=== PATIENT | male | born 1990 | race Caucasian/White ===

== ENCOUNTER 2021-07-07 13:58 | Emergency (ER) | payer OTHER, SELFPAY ==
--- NOTE | 2021-07-07 14:04 | ED.GENADULT ---
HPI - General Adult General Chief complaint: Unspecified Stated complaint: Medication Refill Time Seen by Provider: 07/07/21 14:04 Source: patient and RN notes reviewed History of Present Illness HPI narrative: Patient is a 30-year-old male who presents the urgent care with complaints of needing medication refills. States that he is HIV positive and his physician who orders his medications is in [place]. Patient states that he recently had an insurance change to [place] [employer] and they will not refill the medications. Patient denies of any complications. No other acute complaints. No acute distress noted. Patient aware of the plan of care. Some parts of this dictation were generated by voice recognition software and may contain typographical and/or grammatical inaccuracies. Related Data Home Medications Medication Instructions Recorded Confirmed dolutegravir [Tivicay] 50 mg PO DAILY 07/07/21 07/07/21 emtricitabine-tenofovir (TDF) 1 tablet PO DAILY 07/07/21 07/07/21 Allergies Allergy/AdvReac Type Severity Reaction Status Date / Time No Known Allergies Allergy Verified 07/07/21 14:45 Review of Systems Review of Systems: CONSTITUTIONAL: Denies fever, chills, or sweats. EYES: Denies visual changes, redness, or discharge. ENT: Denies rhinorrhea, congestion, sore throat, or otalgia. CARDIOVASCULAR: Denies chest pain, palpitations, or edema. RESPIRATORY: Denies cough or dyspnea. GASTROINTESTINAL: Denies abdominal pain, nausea, vomiting, or diarrhea. GENITOURINARY: Denies dysuria or hematuria. SKIN: Denies rash or itching. MUSCULOSKELETAL: Denies back pain, joint pain, or myalgia. NEUROLOGIC: Denies headache, numbness, or weakness. All other systems reviewed are negative, except as documented in HPI. PMFSH Comments At the time of my signature, I reviewed and agree with the nursing past medical, surgical, social, and family history. There is no relevant family history pertinent to the patient complaint. Exam Narrative: GENERAL: This is a well-nourished, well-developed patient, in no apparent distress. HEAD: normocephalic, atraumatic. EYES: PERRL. Sclera clear/white. Vision is grossly intact. EARS: External ears normal NOSE: External nose normal with no obvious nasal discharge, nares without redness, no rhinorrhea. THROAT: Mucous membranes moist NECK: Neck supple CARDIOVASCULAR: Regular rate and rhythm without murmurs, gallops, or rubs. RESPIRATORY: Clear to auscultation. Breath sounds equal bilaterally. No wheezes, rales, or rhonchi. SKIN: warm, intact with no suspicious lesions or rash, good texture and turgor. NEURO: awake, alert, and oriented to person, place and time. There were no obvious focal neurologic abnormalities. EXTREMITIES: No clubbing, cyanosis, or edema. Course Vital Signs Vital signs: Vital Signs Temperature 98.8 F 07/07/21 14:10 Pulse Rate 92 07/07/21 14:10 Respiratory Rate 18 07/07/21 14:10 Blood Pressure 150/83 H 07/07/21 14:10 Pulse Oximetry 99 07/07/21 14:10 Temperature 98.8 F 07/07/21 14:10 Pulse Rate 92 07/07/21 14:10 Respiratory Rate 18 07/07/21 14:10 Blood Pressure 150/83 H 07/07/21 14:10 Pulse Oximetry 99 07/07/21 14:10 Reviewed-patient is informed that they may have pre-hypertension or hypertension based on a blood pressure reading in the department. I recommend the patient call the primary care provider listed on their discharge instructions or a physician of their choice this week to arrange follow-up for further evaluation of possible pre-hypertension or hypertension. Medical Decision Making MDM Narrative Medical decision making narrative: Explained to the patient that our facility cannot routinely refill chronic medications. We will refill 30-day supply of both HIV medications. Stressed to the patient he needs to follow-up with a primary care physician. Follow-up with the referred PCP today or tomorrow for future appointment time. Different
[2021-07-07 14:10] VITALS: BP 150/83; PULSE 92; RESP 18; TEMP 37.1; O2SAT 99
== END 2021-07-07 14:15 | disposition home or self-care (01) ==
PROVIDERS: Emergency Provider Nurse Practitioner Family
DX: Z76.0 Encounter for issue of repeat prescription (principal); Z21 Asymptomatic human immunodeficiency virus [HIV] infection status
CPT/HCPCS: 99211; G0463

== ENCOUNTER 2021-08-09 16:15 | Emergency (ER) | payer OTHER, SELFPAY ==
[2021-08-09 16:23] VITALS: BP 146/72; PULSE 84; RESP 16; TEMP 36.3; O2SAT 99
--- NOTE | 2021-08-09 16:33 | ED.GENADULT ---
HPI - General Adult General Chief complaint: Unspecified Stated complaint: RX Refills Source: patient Mode of arrival: ambulatory Limitations: no limitations History of Present Illness HPI narrative: 30-year-old well-appearing male presented requesting refill of HIV medications. He states his insurance is going into effect in 5 days, however he only has 1 pill left. He states he will be moving back to [place] and will be reestablishing with his primary care provider. He was here last month for the same. Related Data Home Medications Medication Instructions Recorded Confirmed dolutegravir [Tivicay] 50 mg PO DAILY 07/07/21 07/07/21 emtricitabine-tenofovir (TDF) 1 tablet PO DAILY 07/07/21 07/07/21 Allergies Allergy/AdvReac Type Severity Reaction Status Date / Time No Known Allergies Allergy Verified 07/07/21 14:45 Review of Systems Review of Systems: CONSTITUTIONAL: Denies body aches, fever, chills, or sweats. EYES: Denies visual changes, redness, or discharge. ENT: Denies rhinorrhea, congestion, sore throat, or otalgia. CARDIOVASCULAR: Denies chest pain, palpitations, or edema. RESPIRATORY: Denies cough or dyspnea. GASTROINTESTINAL: Denies abdominal pain, nausea, vomiting, or diarrhea. GENITOURINARY: Denies dysuria or hematuria. SKIN: Denies rash, itching, or wounds. MUSCULOSKELETAL: Denies back pain, joint pain, or myalgia. NEUROLOGIC: Denies headache, numbness, tingling, or weakness. PSYCH: Denies depression or anxiety. Exam Narrative: GENERAL: Well-appearing, well-nourished, and in no acute distress. HEAD: Normocephalic, atraumatic. EYES: EOMI. No redness or drainage. Conjunctivae normal. ENT: Mucous membranes pink and moist. No rhinorrhea. NECK: Normal AROM. CHEST: No respiratory distress. Clear to auscultation. HEART: Regular rate and rhythm. No murmur appreciated. ABDOMEN: Soft, nontender, nondistended MUSCULOSKELETAL: No bony tenderness. EXTREMITIES: Normal range of motion. No edema. SKIN: Warm, dry, no rash. Normal skin turgor. NEURO: No focal deficits. Alert and oriented x3. Gait steady. PSYCH: Normal affect. No signs of depression or anxiety. Course Course Emergency Course: Patient is aware of diagnosis, understands and agrees to treatment plan. Anticipatory guidance given. Patient agrees to follow-up as directed and is aware of reasons to seek care at the emergency department. Portions of this record may have been created with voice recognition software Level of Care: Express Care Visit Vital Signs Vital signs: Vital Signs Temperature 97.4 F L 08/09/21 16:23 Pulse Rate 84 08/09/21 16:23 Respiratory Rate 16 08/09/21 16:23 Blood Pressure 146/72 H 08/09/21 16:23 Pulse Oximetry 99 08/09/21 16:23 Temperature 97.4 F L 08/09/21 16:23 Pulse Rate 84 08/09/21 16:23 Respiratory Rate 16 08/09/21 16:23 Blood Pressure 146/72 H 08/09/21 16:23 Pulse Oximetry 99 08/09/21 16:23 Medical Decision Making Differential Diagnosis Differential Diagnosis: med refill Vital Signs Vital Signs: Vital Signs Temperature 97.4 F L 08/09/21 16:23 Pulse Rate 84 08/09/21 16:23 Respiratory Rate 16 08/09/21 16:23 Blood Pressure 146/72 H 08/09/21 16:23 Pulse Oximetry 99 08/09/21 16:23 Temperature 97.4 F L 08/09/21 16:23 Pulse Rate 84 08/09/21 16:23 Respiratory Rate 16 08/09/21 16:23 Blood Pressure 146/72 H 08/09/21 16:23 Pulse Oximetry 99 08/09/21 16:23 Discharge Plan Discharge Clinical Impression: Encounter for medication refill Patient Disposition: Home, Self-Care Condition: Stable Instructions: Antibiotic Form Additional Instructions: Reminder: Our facility cannot routinely refill chronic medications. We will refill a 30-day supply of both medications today. Please follow-up with your primary care provider for further refills. Prescriptions: New Tivicay 50 mg tablet 50 mg PO DAILY Qty: 30 RF: 0 emtricita
== END 2021-08-09 16:45 | disposition home or self-care (01) ==
PROVIDERS: Emergency Provider Nurse Practitioner Family
DX: B20 Human immunodeficiency virus [HIV] disease (principal)
CPT/HCPCS: 99211; G0463